=== PATIENT | male | born 1995 | race African-American/Black ===

== ENCOUNTER 2016-06-22 22:30 | Emergency (ER) | payer OTHER ==
[~2016-06-22] VITALS: Ht 193 cm; Wt 112.0 kg
[2016-06-23] MEDS ORDERED: KETOROLAC TROMETHAMINE 30 MG/ML VIAL IVP ONE (00:30)
[2016-06-23] MEDS ORDERED: SODIUM CHLORIDE 0.9% 1,000 ML IV ONE (00:30)
[2016-06-23 03:27] VITALS: BP 119/79
[2016-06-23 03:32] LABS: INFLUENZA TYPE B NEGATIVE FOR TYPE B (NEGATIVE)
== END 2016-06-23 03:52 | disposition home or self-care (01) ==
LOC: EMS 22:32
DX: B34.9 Viral infection, unspecified (principal)
CPT/HCPCS: 71010; 87804; 96361; 96374; 99285; J1885; J7030

== ENCOUNTER 2017-06-18 08:48 | Emergency (ER) | payer MEDICAID, OTHER ==
[~2017-06-18] VITALS: Ht 193 cm; Wt 122.7 kg
[2017-06-18 09:39] LABS: APPEARANCE,URINE CLEAR (CLEAR); BILIRUBIN,URINE NEGATIVE (NEGATIVE); GLUCOSE, URINE (UA) NEGATIVE (NEGATIVE); KETONES,URINE NEGATIVE (NEGATIVE); LEUKOCYTE ESTERASE ,URINE NEGATIVE (NEGATIVE); NITRATE,URINE NEGATIVE (NEGATIVE); OCCULT BLOOD,URINE NEGATIVE (NEGATIVE); PH,URINE 7.5 (5.0-8.0); PROTEIN,URINE TRACE (NEGATIVE)
[2017-06-18 10:02] VITALS: BP 113/82
== END 2017-06-18 10:54 | disposition home or self-care (01) ==
LOC: EMS 08:49
DX: S83.91XA Sprain of unspecified site of right knee, initial encounter (principal); W06.XXXA Fall from bed, initial encounter; Y93.89 Activity, other specified; Y92.89 Other specified places as the place of occurrence of the external cause; Y99.8 Other external cause status
CPT/HCPCS: 29505; 99283

== ENCOUNTER 2019-09-06 19:14 | Emergency (ER) | payer MEDICAID, OTHER ==
[~2019-09-06] VITALS: Ht 193 cm; Wt 122.7 kg
[2019-09-06] MEDS ORDERED: IBUPROFEN 800 MG TABLET PO ONE (20:30)
[2019-09-06 21:26] VITALS: BP 139/68
== END 2019-09-06 21:29 | disposition home or self-care (01) ==
LOC: EMS 19:16
DX: M54.5 Low back pain (principal); M62.838 Other muscle spasm; F17.210 Nicotine dependence, cigarettes, uncomplicated
CPT/HCPCS: 72100

== ENCOUNTER 2019-11-01 07:50 | Emergency (ER) | payer OTHER ==
[~2019-11-01] VITALS: Ht 193 cm; Wt 118.2 kg
[2019-11-01] MEDS ORDERED: PERTUSS(ACELL),DIPH,TET VAC/PF 0.5 ML VIAL IM ONE (09:15)
[2019-11-01 09:33] VITALS: BP 138/78
== END 2019-11-01 09:44 | disposition home or self-care (01) ==
LOC: EMS 07:54
DX: S61.011A Laceration without foreign body of right thumb without damage to nail, initial encounter (principal); S61.212A Laceration without foreign body of right middle finger without damage to nail, initial encounter; F17.210 Nicotine dependence, cigarettes, uncomplicated; W26.8XXA Contact with other sharp object(s), not elsewhere classified, initial encounter; Y93.89 Activity, other specified; Y92.89 Other specified places as the place of occurrence of the external cause; Y99.8 Other external cause status
CPT/HCPCS: 12001; 12002; 90471; 90715

== ENCOUNTER 2023-12-16 16:43 | Emergency (ER) | payer OTHER ==
[~2023-12-16] VITALS: Ht 193 cm; Wt 134.1 kg
[2023-12-16 16:52] VITALS: TEMP 98.7
[2023-12-16] MEDS: TraMADol HCL 50 MG TABLET PO ONE (18:23)
[2023-12-16] MEDS: KETOROLAC TROMETHAMINE 30 MG/ML VIAL IM ONE (18:23)
[2023-12-16] MEDS: LIDOCAINE 5% TRANSDERMAL PATCH TD ONE (18:23)
[2023-12-16 19:26] VITALS: BP 119/70; PULSE 89; RESP 20; O2SAT 100
[2023-12-16] MEDS ORDERED: CYCL-448 PO (20:13)
== END 2023-12-16 20:22 | disposition home or self-care (01) ==
LOC: EMS 16:47
DX: M54.50 Low back pain, unspecified (principal); F17.210 Nicotine dependence, cigarettes, uncomplicated; F12.90 Cannabis use, unspecified, uncomplicated
CPT/HCPCS: 99283; 72100; 96372; J1885

== ENCOUNTER 2024-05-04 10:16 | Emergency (ER) | payer OTHER ==
[~2024-05-04] VITALS: Ht 193 cm; Wt 136.4 kg
[~2024-05-04 10:16] MED LIST: CYCL-448 PO
[2024-05-04 10:24] VITALS: TEMP 98.3
[2024-05-04 12:30] VITALS: BP 133/75; PULSE 79; RESP 17; O2SAT 97
== END 2024-05-04 14:07 | disposition left against medical advice (07) ==
LOC: EMS 10:20
DX: R42 Dizziness and giddiness (principal); R11.0 Nausea; Z53.21 Procedure and treatment not carried out due to patient leaving prior to being seen by health care provider

== ENCOUNTER 2024-09-02 08:53 | Emergency (ER) | payer OTHER ==
[~2024-09-02] VITALS: Ht 195.6 cm; Wt 131.8 kg
[2024-09-02 09:07] VITALS: TEMP 98.1
[2024-09-02 12:15] LABS: APPEARANCE,URINE CLEAR (CLEAR); BILIRUBIN,URINE NEGATIVE (NEGATIVE); COLOR,URINE LIGHT YELLOW (YELLOW); GLUCOSE, URINE (UA) NEGATIVE (NEGATIVE); KETONES,URINE NEGATIVE (NEGATIVE); LEUKOCYTE ESTERASE ,URINE MODERATE (NEGATIVE); NITRATE,URINE NEGATIVE (NEGATIVE); OCCULT BLOOD,URINE NEGATIVE (NEGATIVE); PROTEIN,URINE NEGATIVE (NEGATIVE); SPECIFIC GRAVITIY, URINE 1.024 (1.003-1.030); UROBILINOGEN,URINE <=1.0 mg/dL (<=1.0)
[2024-09-02 12:34] LABS: RBC,URINE 0-2 /HPF (0-2); WBC,URINE 51-100 /HPF (0-5)
[2024-09-02 12:36] LABS: BACTERIA,URINE Moderate /HPF (None Seen); SQUAMOUS EPITHELIAL CELL,UR Moderate /LPF (None Seen)
[2024-09-02] MEDS: AZITHROMYCIN 500 MG TABLET PO ONE (12:57)
[2024-09-02] MEDS: levoFLOXacin 500 MG TABLET PO ONE (12:57)
[2024-09-02 13:00] VITALS: BP 135/80; PULSE 80; RESP 18; O2SAT 97
== END 2024-09-02 13:23 | disposition home or self-care (01) ==
LOC: EMS 09:08
DX: N34.2 Other urethritis (principal); F12.90 Cannabis use, unspecified, uncomplicated; F17.210 Nicotine dependence, cigarettes, uncomplicated; Z91.09 Other allergy status, other than to drugs and biological substances
CPT/HCPCS: 99283; 81001; 87086; 87491; 87591; J0456